=== PATIENT | female | born 2005 | race Caucasian/White ===

== ENCOUNTER 2025-01-13 16:38 | Emergency (ER) | payer BC ==
[2025-01-13] MEDS: Sodium Chloride 0.9% 10 ML Syringe FLUSH PRN (18:10)
[2025-01-13 18:22] LABS: BASOPHILS PERCENT AUTO 0.3 % (0.0-1.0); EOSINOPHILS ABSOLUTE AUTO 0.2 K/mm3 (0.0-0.4); EOSINOPHILS PERCENT AUTO 2.4 % (0.0-6.0); HEMATOCRIT 29.4 % (37.0-47.0); HEMOGLOBIN 9.6 gm/dl (12.0-16.0); IMMATURE GRAN ABSOLUTE AUTO 0.05 K/mm3 (0.00-0.05); IMMATURE GRAN PERCENT AUTO 0.6 % (0.0-0.4); LYMPHOCYTES ABSOLUTE AUTO 0.9 K/mm3 (1.0-4.8); LYMPHOCYTES PERCENT AUTO 10.1 % (24.0-44.0); MEAN CORPUSCULAR HEMOGLOBIN 28.9 pg (28.0-32.0); MEAN CORPUSCULAR HGB CONC 32.7 g/dl (32.0-36.0); MEAN CORPUSCULAR VOLUME 88.6 fl (83.0-99.0); MEAN PLATELET VOLUME 10.2 fl (9.4-12.3); MONOCYTES ABSOLUTE AUTO 0.6 K/mm3 (0.0-0.8); MONOCYTES PERCENT AUTO 6.6 % (0.0-8.0); NEUTROPHILS ABSOLUTE AUTO 7.1 K/mm3 (1.8-7.7); PLATELET COUNT,PLT 302 K/mm3 (150-400); RED BLOOD CELL COUNT 3.32 M/mm3 (4.10-5.30); WHITE BLOOD CELL COUNT,WBC 8.84 K/mm3 (3.9-11.3)
[2025-01-13 18:23] LABS: APPEARANCE,URINE SLT CLOUDY (Clear); BILIRUBIN,URINE NEGATIVE (Negative); COLOR,URINE PINK (Yellow); GLUCOSE,URINE NEGATIVE (Negative); KETONES,URINE NEGATIVE (Negative); LEUKOCYTE ESTERASE,URINE 2+ (Negative); NITRITE,URINE NEGATIVE (Negative); OCCULT BLOOD,URINE 3+ (Negative); PROTEIN,URINE 2+ (Negative); UROBILINOGEN,URINE 0.2 (0.2-1.0)
[2025-01-13 18:39] LABS: A/G RATIO 0.7 (1-2); ALANINE AMINOTRANSFERASE,ALT 35 U/L (14-59); ALBUMIN 2.4 g/dl (3.4-5.0); ALKALINE PHOSPHATASE 100 U/L (46-116); ANION GAP 14.4 (5-15); ASPARTATE AMNIOTRANSFERASE,AST 22 U/L (15-37); BILIRUBIN TOTAL 0.4 mg/dL (0.2-1.0); BLOOD UREA NITROGEN,BUN 12 mg/dL (7-18); BUN/CREATININE RATIO 17.1 (14-18); CALCIUM 8.4 mg/dL (8.5-10.1); CARBON DIOXIDE,CO2 23 mEq/L (21-32); CHLORIDE,CL 109 mEq/L (98-107); CREATININE 0.7 mg/dL (0.55-1.02); ESTIMATED GFR 127 mL/min (>60); GLUCOSE RANDOM 85 mg/dL (70-99); POTASSIUM,K 3.4 mEq/L (3.5-5.1); PROTEIN TOTAL,TP 5.9 g/dl (6.4-8.2); SODIUM,NA 143 mEq/L (136-145); TROPONIN I HIGH SENSITIVITY 14 pg/mL (<=51)
[2025-01-13] MEDS: Sodium Chloride 0.9% 100 ML IV SCH (18:47)
[2025-01-13] MEDS: Iopamidol 755 Mg/ML 100 ML Bottle IVPUSH ONE (18:47)
[2025-01-13 19:16] LABS: RBC,URINE 20-30 /hpf (0-5); WBC,URINE 30-40 /hpf (0-5)
[2025-01-13 19:17] LABS: BACTERIA,URINE MANY /hpf (FEW); MUCUS,URINE FEW /hpf (FEW)
[2025-01-13] MEDS: Labetalol 100 MG/20 ML MDV IVPUSH ONE ×2 (19:17→19:41)
[2025-01-13] MEDS: hydrALAZINE 20 MG/ML SDV IVPUSH ONE (20:14)
== END 2025-01-13 20:39 | disposition home or self-care (01) ==
LOC: JD.ED 16:38
DX: J81.0 Acute pulmonary edema (principal); O16.5 Unspecified maternal hypertension, complicating the puerperium; Z79.899 Other long term (current) drug therapy
CPT/HCPCS: 36415; 71275; 80053; 81001; 83880; 84484; 85025; 93005; 96374; 96375; 99285; J0360; J1920; Q9967; 93010; 99284

== ENCOUNTER 2025-06-07 10:45 | Emergency (ER) | payer BC ==
[2025-06-07 11:33] LABS: BASOPHILS ABSOLUTE AUTO 0.1 K/mm3 (0.0-0.2); BASOPHILS PERCENT AUTO 0.8 % (0.0-1.0); EOSINOPHILS ABSOLUTE AUTO 0.1 K/mm3 (0.0-0.4); EOSINOPHILS PERCENT AUTO 1.4 % (0.0-6.0); IMMATURE GRAN ABSOLUTE AUTO 0.01 K/mm3 (0.00-0.05); IMMATURE GRAN PERCENT AUTO 0.2 % (0.0-0.4); LYMPHOCYTES ABSOLUTE AUTO 1.3 K/mm3 (1.0-4.8); LYMPHOCYTES PERCENT AUTO 20.4 % (24.0-44.0); MEAN PLATELET VOLUME 9.7 fl (9.4-12.3); MONOCYTES ABSOLUTE AUTO 0.5 K/mm3 (0.0-0.8); MONOCYTES PERCENT AUTO 7.4 % (0.0-8.0); NEUTROPHILS ABSOLUTE AUTO 4.6 K/mm3 (1.8-7.7); NEUTROPHILS PERCENT AUTO 69.8 % (41.0-71.0); NRBC ABSOLUTE 0.00 (0.00-0.02); NRBC PERCENT 0.0 % (0.0-0.2); PLATELET COUNT,PLT 270 K/mm3 (150-400); RED BLOOD CELL COUNT 4.56 M/mm3 (4.10-5.30); WHITE BLOOD CELL COUNT,WBC 6.51 K/mm3 (3.9-11.3)
[2025-06-07 12:10] LABS: A/G RATIO 1.0 (1-2); ALANINE AMINOTRANSFERASE,ALT 33 U/L (14-59); ASPARTATE AMNIOTRANSFERASE,AST 16 U/L (15-37); BILIRUBIN TOTAL 0.3 mg/dL (0.2-1.0); BLOOD UREA NITROGEN,BUN 15 mg/dL (7-18); CARBON DIOXIDE,CO2 28 mEq/L (21-32); CHLORIDE,CL 106 mEq/L (98-107); CREATININE 0.7 mg/dL (0.55-1.02); EST CRCL DRUG DOSING (CG) 129.32 mL/min; ESTIMATED GFR 127 mL/min (>60); GLUCOSE RANDOM 97 mg/dL (70-99); POTASSIUM,K 4.6 mEq/L (3.5-5.1); PROTEIN TOTAL,TP 7.3 g/dl (6.4-8.2); SODIUM,NA 139 mEq/L (136-145)
[2025-06-07 12:14] LABS: HCG QUANTITATIVE < 1.0 mIU/mL
[2025-06-07 12:16] LABS: APPEARANCE,URINE TURBID (Clear); GLUCOSE,URINE NEGATIVE (Negative); OCCULT BLOOD,URINE 3+ (Negative)
== END 2025-06-07 14:10 | disposition home or self-care (01) ==
LOC: JD.ED 10:45
DX: O20.9 Hemorrhage in early pregnancy, unspecified (principal); Z3A.00 Weeks of gestation of pregnancy not specified
CPT/HCPCS: 36415; 76830; 76830-26; 80053; 81001; 84702; 85025; 99283; 99284